=== PATIENT | female | born 1955 | race Caucasian/White ===

== ENCOUNTER 2019-10-18 08:48 | Outpatient (CLI) | payer MEDICARE, SELFPAY ==
--- NOTE | ~2019-10-18 | MMUS_ITS ---
EXAMINATION: MM diagnostic elise RT w ish, US breast RT complete HISTORY: Six-month follow-up of probable benign 4.1 x 2.3 x 3.1 cm complex cystic mass with internal septations at 10:00, likely benign postoperative seroma TECHNIQUE: ML, MLO and cc 3-D tomosynthesis images of the right breast were performed and synthetic 2 -D images were generated. CAD analysis was submitted and interpreted. High resolution complete right breast ultrasound was performed. COMPARISON: 03/01/2019 diagnostic bilateral digital mammogram and limited right breast ultrasound BREAST PARENCHYMAL COMPOSITION: The breasts are heterogeneously dense, which may obscure small masses . FINDINGS: MAMMOGRAPHIC FINDINGS: There is postoperative change posteriorly in the upper outer quadrant of the r ight breast. The previously reported mass density in the posterior aspect of the upper outer quadrant left breast is considerably diminished in size, currently measuring approximately 1.3 x 2.6 cm, consistent with i mpression of probable benign postoperative seroma. No suspicious mass or architectural distortion, malignant calcification, skin thickening or retractio n is noted otherwise. ULTRASOUND: At 10:00 the previously reported 4.1 x 2.3 x 3.1 cm multi septated cystic lesion currently is a compl ex mixed cisterns and solid lesion measuring 2.3 x 1.2 x 2.6 cm, consistent with resolving seroma. IMPRESSION: 1. Resolving posterior upper outer quadrant right breast postoperative seroma 2. Routine mammographic screening is recommended, in addition to any other clinically appropriate ashleigh ging in this patient with history of right breast cancer BI-RADS Category 2: Benign finding(s). Reviewed, dictated and finalized at location A. ENT SERVICE ASSOCIATE IMPRESSION: 1. Resolving posterior upper outer quadrant right breast postoperative seroma 2. Routine mammographic screening is recommended, in addition to any other clin ically appropriate imaging in this patient with history of right breast cancer BI-RADS Category 2: Benign finding(s).
== END 2019-10-18 08:49 | disposition home or self-care (01) ==
PROVIDERS: PCP Internal Medicine
DX: C50.411 Malignant neoplasm of upper-outer quadrant of right female breast (principal); Z17.0 Estrogen receptor positive status [ER+]; R92.8 Other abnormal and inconclusive findings on diagnostic imaging of breast; L76.34 Postprocedural seroma of skin and subcutaneous tissue following other procedure
CPT/HCPCS: 76641; 77061; 77065; G0279

== ENCOUNTER 2020-02-28 13:33 | Outpatient (CLI) | payer MEDICARE, SELFPAY ==
--- NOTE | ~2020-02-28 | MM_ITS ---
EXAMINATION: MM diagnostic elise BI w ish HISTORY: Status post right partial mastectomy for breast cancer in 2019 TECHNIQUE: ML, MLO and craniocaudal 3-D tomosynthesis images of both breasts were performed and synth etic 2-D images were generated. Bilateral rotated lateral cc views. CAD analysis was submitted and in terpreted. Comparison: 10/18/2019 diagnostic right digital mammogram and complete right breast ultrasound 03/01/2019 bilateral diagnostic digital mammogram and limited right breast ultrasound 10/07/2018 mammographic localization of right breast FINDINGS: There are scattered areas of fibroglandular density. Postoperative change is noted posteriorly in the upper outer quadrant right breast. No interval suspicious mass or new architectural distortion, malignant calcification, skin thickening or retraction is evident. IMPRESSION: 1. Status post right partial mastectomy for breast cancer 2. No interval evidence of malignancy BI-RADS Category 2: Benign finding(s). Reviewed, dictated and finalized at location A.
== END 2020-02-28 13:34 | disposition home or self-care (01) ==
PROVIDERS: PCP Internal Medicine; Referring Provider Radiology Radiation Oncology; Visit Provider Internal Medicine Medical Oncology
DX: C50.411 Malignant neoplasm of upper-outer quadrant of right female breast (principal); Z17.0 Estrogen receptor positive status [ER+]
CPT/HCPCS: 77062; 77066; G0279

== ENCOUNTER → 2020-08-28 09:07 | Outpatient (CLI) | payer MEDICARE, SELFPAY ==
--- NOTE | ~2020-08-28 | MMUS_ITS ---
EXAMINATION: MM diagnostic elise RT w ish, US breast RT limited HISTORY: Six-month follow-up; status post partial mastectomy for breast cancer, seroma TECHNIQUE: ML, MLO and cc full field and spot 3-D tomosynthesis images of the right breast were perfo rmed and synthetic 2-D images were generated. CAD analysis was submitted and interpreted. High resolu tion upper outer quadrant right breast ultrasound was performed. COMPARISON: 02/28/2020 bilateral diagnostic digital mammogram diagnostic right digital mammogram and complete right breast ultrasound examination BREAST PARENCHYMAL COMPOSITION: There are scattered areas of fibroglandular density. FINDINGS: MAMMOGRAPHIC FINDINGS: There is persistent architectural distortion in the posterior aspect of the upper outer quadrant of t he right breast overlying surgical scar. There is diminished size of a previously reported seroma. No suspicious mass, architectural distortion, malignant calcification, skin thickening or retraction or significant new or developing density is noted elsewhere in the right breast. ULTRASOUND: At 10:00 7.5 cm from the nipple at the area of surgical scar there is an underlying complex mass. The re is an approximately 5 x 12 mm seroma, but there is irregular soft tissue density with architectura l distortion and posterior shadowing at the margins, of concern for possible recurrent malignancy. Ul trasound-guided biopsy is recommended. IMPRESSION: 1. Irregular soft tissue thickening, distortion and posterior shadowing at the right upper outer quad rant postoperative site (10:00 location 7.5 cm from nipple), not evident on 10/18/2019 2. Recurrent upper outer quadrant right breast malignancy cannot be excluded 3. Ultrasound-guided biopsy is recommended BI-RADS category 4, suspicious findings. Dr. Driver telephoned the report and ultrasound guided biopsy recommendation to Dr. Yuliana Seaman on at 1219 hours. Reviewed, dictated and finalized at location A. NE ELECTRICIAN IMPRESSION: 1. Irregular soft tissue thickening, distortion and posterior shadowing at the right upper outer quadrant postoperative site (10:00 location 7.5 cm from nippl e), not evident on 10/18/2019 2. Recurrent upper outer quadrant right breast malignancy cannot be excluded 3. Ultrasound-guided biopsy is recommended BI-RADS category 4, suspicious findings. Dr. Driver telephoned the report and ultrasound guided biopsy recommendation to Deanne Seaman on 08/28/2020 at 1219 hours.
== END ==
PROVIDERS: PCP Internal Medicine; Visit Provider Internal Medicine Medical Oncology
DX: C50.411 Malignant neoplasm of upper-outer quadrant of right female breast (principal); Z17.0 Estrogen receptor positive status [ER+]; R92.8 Other abnormal and inconclusive findings on diagnostic imaging of breast
CPT/HCPCS: 76642; 77061; 77065; G0279

== ENCOUNTER 2020-09-06 10:08 | Outpatient (CLI) | payer MEDICARE, SELFPAY ==
--- NOTE | ~2020-09-06 | MMUS_ITS ---
MM post biopsy invasive RT, US breast biopsy RT w image EXAMINATION: US GUIDED NEEDLE BIOPSY WITH VAC UUM ASSISTANCE DATE: 09/06/2020 11:27 MOGUL OPERATOR INDICATION: Right breast mass seen on recent examination. History of right breast cancer. Ultrasound -guided core biopsy is requested to evaluate for malignancy. TECHNIQUE AND FINDINGS: The risks and potential benefits of the procedure were discussed with the patient, and written inform ed consent was obtained. After sterile preparation of the right breast, 1% lidocaine was utilized fo r local anesthesia. 1% lidocaine with epinephrine was used for deep anesthesia. A 10G vacuum-assisted biopsy gun needle was advanced through to the outer edge of the region of inter est from a superior lateral approach utilizing sonographic guidance. A total of 4 tissue core sample s were obtained through the lesion. An Inrad tissue marker clip was then placed at the biopsy site. Hemostasis was achieved. The patient tolerated procedure well and there was no evidence of immediate complication. The patien t was given verbal instructions partly is from the department. Right breast mammograms to document t issue marker clip placement, although the tissue marker is not definitely visualized. There are 2 mar kers seen in the upper aspect of the right axilla which may relate to prior surgery. The tissue sampl es were submitted to surgical pathology for histologic analysis. IMPRESSION: 1. Successful ultrasound-guided vacuum-assisted biopsy of right breast mass. Please refer to patholo gy report for histologic analysis. Reviewed, dictated and finalized at location A. L OPERATOR IMPRESSION: 1. Successful ultrasound-guided vacuum-assisted biopsy of right breast mass. P lease refer to pathology report for histologic analysis.
== END 2020-09-06 10:09 | disposition home or self-care (01) ==
PROVIDERS: PCP Internal Medicine; Visit Provider Surgery
DX: R92.8 Other abnormal and inconclusive findings on diagnostic imaging of breast (principal); Z85.3 Personal history of malignant neoplasm of breast
CPT/HCPCS: 19083; 88305; A4648

== ENCOUNTER 2021-02-19 12:34 | Outpatient (CLI) | payer MEDICARE, SELFPAY ==
--- NOTE | 2021-02-19 12:47 | ECG_ITS ---
Measurements Intervals [place] Rate: 52 P: 45 SC: 163 QRS: 15 QRSD: 102 T: 53 QT: 427 QTc: 400 Interpretive Statements SINUS BRADYCARDIA DELAYED PRECORDIAL R/S TRANSITION BORDERLINE ECG Electronically Signed On 02-19-2021 13:04:00 CDT by Kobi Gonzalez D.O.
== END 2021-02-19 12:35 | disposition home or self-care (01) ==
PROVIDERS: PCP Internal Medicine; Visit Provider Internal Medicine
DX: I10 Essential (primary) hypertension (principal); Z01.818 Encounter for other preprocedural examination; R94.31 Abnormal electrocardiogram [ECG] [EKG]
CPT/HCPCS: 93005

== ENCOUNTER 2021-03-02 12:43 | Outpatient (CLI) | payer MEDICARE, SELFPAY ==
--- NOTE | ~2021-03-02 | MMUS_ITS ---
EXAMINATION: MM diagnostic elise BI w ish, US breast LT complete HISTORY: Personal history right breast cancer TECHNIQUE: ML, MLO and craniocaudal 3-D tomosynthesis images of both breasts were performed and synth etic 2-D images were generated. Bilateral rotated lateral craniocaudal views. CAD analysis was submit hallie and interpreted. High resolution complete left breast ultrasound was performed. COMPARISON: 08/28/2020 right diagnostic mammogram and limited right breast ultrasound 02/28/2020 bilateral diagnostic mammography 08/17/2020 diagnostic right mammogram and complete right breast ultrasound 03/01/2019 bilateral diagnostic digital mammogram and limited right breast ultrasound BREAST PARENCHYMAL COMPOSITION: There are scattered areas of fibroglandular density. FINDINGS: MAMMOGRAPHIC FINDINGS: Postoperative surgical stable scarring is noted posteriorly in the upper outer right breast, not sign ificantly changed since 08/28/2020. 09/06/2020 biopsy no this area showed fibrotic change. 4 mm circumscribed mass is suggested posteriorly in the left breast on MLO Tomosynthesis image /. Otherwise no suspicious mass, architectural distortion, malignant calcification, skin thickening or r etraction or significant new or developing density of either breast is detected. ULTRASOUND: No suspicious mass or shadowing of the left breast is detected. IMPRESSION: 1. Stable benign postoperative scarring posteriorly in the upper outer quadrant of the right breast p ost right partial mastectomy for breast cancer 2. No mammographic evidence of malignancy 3. Routine mammographic screening is recommended BI-RADS Category 2: Benign finding(s). Reviewed, dictated and finalized at location A. IMPRESSION: 1. Stable benign postoperative scarring posteriorly in the upper outer quadrant of the right breast post right partial mastectomy for breast cancer 2. No mammographic evidence of malignancy 3. Routine mammographic screening is recommended BI-RADS Category 2: Benign finding(s).
== END 2021-03-02 12:44 | disposition home or self-care (01) ==
PROVIDERS: PCP Internal Medicine; Visit Provider Obstetrics & Gynecology Gynecology
DX: C50.911 Malignant neoplasm of unspecified site of right female breast (principal); Z85.3 Personal history of malignant neoplasm of breast
CPT/HCPCS: 76641; 77062; 77066; G0279

== ENCOUNTER 2021-10-19 10:45 | Outpatient (CLI) | payer MEDICARE, SELFPAY ==
--- NOTE | ~2021-10-19 | MM_ITS ---
EXAMINATION: MM diagnostic elise BI w ish HISTORY: History of right breast cancer TECHNIQUE: Craniocaudal, mediolateral, and mediolateral oblique 3-D tomosynthesis images of the breas ts were performed and synthetic 2-D images were generated. CAD analysis was submitted and interpreted . COMPARISON: 03/02/2021, 08/28/2020, 02/28/2020, 10/18/2019, 03/01/2019 FINDINGS: Stable lumpectomy changes are present in the posterior third of the upper outer quadrant of the right breast. No new suspicious mass, calcification, or architectural distortion are identified. There has been no suspicious interval change. IMPRESSION: 1. No mammographic evidence of malignancy. 2. Recommend routine screening mammography in one year. BI-RADS Category 2: Benign finding(s). Reviewed, dictated and finalized at location A. IFIED COATINGS INSPECTOR
== END 2021-10-19 10:46 | disposition home or self-care (01) ==
PROVIDERS: PCP Internal Medicine; Visit Provider Obstetrics & Gynecology Gynecology
DX: Z85.3 Personal history of malignant neoplasm of breast (principal)
CPT/HCPCS: 77062; 77066; G0279

== ENCOUNTER 2022-03-19 09:44 | Outpatient (CLI) | payer MEDICARE, SELFPAY ==
--- NOTE | 2022-03-19 09:57 | EST_ITS ---
Patient Info Name: Rosalba Smith Age: 66 years : 1955 Gender: Female Ht: 64 in Wt: 133 lbs BSA: 1.66 m2 HR: 47 bpm BP: 138 / 65 mmHg Heart Rhythm: Sinus Rhythm Technical Quality: Fair Exam Date: 03/19/2022 10:46 AM Exam Location: [facility] Patient Status: Outpatient Admit Date: 03/19/2022 Staff Ordering Physician: Kojo Issa DO Box Truck Driver: Emely Vee RDCS Attending Provider: Kojo Issa DO Referring Physician: Luis Manuel ALCALA; Exam Type: CA stress echo Study Info Indications - FM HX ISCHEMIC HEART DISEASE Treadmill exercise stress echocardiogram is performed. Summary 1. 1. Negative Farhan exercise stress test for ischemic ST changes by ECG criteria. 2. 2. Good functional capacity, achieving 10 METs of workload. 3. 3. Appropriate HR response to exercise. 4. 4. Appropriate HR recovery at 1 minute post exercise. 5. 5. Negative stress echocardiogram for ischemia by wall motion analysis. 6. 6. Patient informed of the above results. Stress Echo Findings Left Ventricle Appropriate increase in LV endocardial thickening with systole. Appropriate augmentation of contractility with systole. No wall motion abnormality. Left Ventricle Normal LV systolic function, no wall motion abnormality. Protocol: Farhan Stress ECG Details Stage: REST Duration (min): 1 min : 56 sec Speed (mph): 0.0 Grade (%): 0 HR (bpm): 48 SBP (mmHg): 138 DBP (mmHg): 65 METS: --- Stage: REST Duration (min): 12 min : 48 sec Speed (mph): 0.0 Grade (%): 0 HR (bpm): 59 SBP (mmHg): 138 DBP (mmHg): 65 METS: --- Stage: STAGE 1 Duration (min): 1 min : 0 sec Speed (mph): 1.7 Grade (%): 10 HR (bpm): 90 SBP (mmHg): 138 DBP (mmHg): 65 METS: --- Stage: STAGE 1 Duration (min): 2 min : 0 sec Speed (mph): 1.7 Grade (%): 10 HR (bpm): 98 SBP (mmHg): 138 DBP (mmHg): 65 METS: --- Stage: STAGE 1 Duration (min): 3 min : 0 sec Speed (mph): 1.7 Grade (%): 10 HR (bpm): 96 SBP (mmHg): 180 DBP (mmHg): 81 METS: --- Stage: STAGE 2 Duration (min): 1 min : 0 sec Speed (mph): 2.5 Grade (%): 12 HR (bpm): 107 SBP (mmHg): 180 DBP (mmHg): 81 METS: --- Stage: STAGE 2 Duration (min): 2 min : 0 sec Speed (mph): 2.5 Grade (%): 12 HR (bpm): 108 SBP (mmHg): 183 DBP (mmHg): 82 METS: --- Stage: STAGE 2 Duration (min): 3 min : 0 sec Speed (mph): 2.5 Grade (%): 12 HR (bpm): 113 SBP (mmHg): 183 DBP (mmHg): 82 METS: --- Stage: STAGE 3 Duration (min): 1 min : 0 sec Speed (mph): 3.4 Grade (%): 14 HR (bpm): 120 SBP (mmHg): 180 DBP (mmHg): 84 METS: --- Stage: STAGE 3 Duration (min): 2 min : 0 sec Speed (mph): 3.4 Grade (%): 14 HR (bpm): 123 SBP (mmHg): 180 DBP (mmHg): 84 METS: --- Stage: STAGE 3 Duration (min): 3 min : 0 sec Speed
== END 2022-03-19 09:45 | disposition home or self-care (01) ==
LOC: ANHCARD 09:45
PROVIDERS: PCP Internal Medicine; Visit Provider Internal Medicine
DX: R07.89 Other chest pain (principal); Z82.49 Family history of ischemic heart disease and other diseases of the circulatory system
CPT/HCPCS: 93351

== ENCOUNTER 2022-05-21 11:09 | Outpatient (CLI) | payer MEDICARE, SELFPAY ==
--- NOTE | ~2022-05-21 | MMUS_ITS ---
EXAMINATION: MM diagnostic elise BI w ish, US breast BI limited HISTORY: History of right breast cancer; status post right partial mastectomy for breast cancer, 2018 . No current patient complaint. TECHNIQUE: ML, MLO and CC full field and spot 3-D tomosynthesis images of both breasts were performed and synthetic 2-D images were generated. Bilateral rotated lateral CC views. CAD analysis was submit hallie and interpreted. High resolution bilateral upper outer quadrant breast ultrasound was performed. COMPARISON: 10/19/2021 bilateral diagnostic mammogram 03/02/2021 bilateral diagnostic mammography and complete left breast ultrasound 02/28/2020 bilateral diagnostic mammogram BREAST PARENCHYMAL COMPOSITION: There are scattered areas of fibroglandular density. FINDINGS: MAMMOGRAPHIC FINDINGS: Stable posterior upper outer quadrant architectural distortion consistent with postoperative scarring from right partial mastectomy for breast cancer, stable in appearance since , 02/28/2020. No interval suspicious mass, new architectural distortion, malignant calcification, skin thickening o r retraction of either breast or significant change since 02/28/2020 ULTRASOUND: No suspicious mass or shadowing is detected in the upper outer quadrant of either breast. IMPRESSION: 1. Status post right partial mastectomy for breast cancer. No mammographic evidence of malignancy 2. Routine annual mammographic screening is recommended BI-RADS Category 2: Benign finding(s). Reviewed, dictated and finalized at location A. IMPRESSION: 1. Status post right partial mastectomy for breast cancer. No mammographic evid ence of malignancy 2. Routine annual mammographic screening is recommended BI-RADS Category 2: Benign finding(s).
== END 2022-05-21 11:10 | disposition home or self-care (01) ==
PROVIDERS: PCP Internal Medicine; Visit Provider Obstetrics & Gynecology Gynecology
DX: R92.8 Other abnormal and inconclusive findings on diagnostic imaging of breast (principal)
CPT/HCPCS: 76642; 77062; 77066; G0279

== ENCOUNTER 2022-07-30 18:55 | Outpatient (CLI) | payer MEDICARE, SELFPAY ==
--- NOTE | ~2022-07-30 | XR_ITS ---
XR_[id number] 07/30/2022 19:14 Indication: Headache Procedure: 4 view cervical spine Comparison: No prior studies for comparison. Findings: There is degenerative anterolisthesis at C2-3, C3-4 and C4-5. There is severe degenerative disc disease and endplate hypertrophy at C5-6. There is disc narrowing at C6-7. No prevertebral soft tissue abnormality. Odontoid process is unremarkable. Lateral masses normally aligned. There is multi level facet and uncinate hypertrophy. Lung apices are unremarkable. Impression: 1: Severe cervical spondylosis. Reviewed, dictated and finalized at location B. ESE LANGUAGE PROFESSOR Impression: 1: Severe cervical spondylosis.
== END 2022-07-30 18:56 | disposition home or self-care (01) ==
LOC: ANHIMG 18:58
PROVIDERS: PCP Internal Medicine; Visit Provider Internal Medicine
DX: R51.9 Headache, unspecified (principal); M47.892 Other spondylosis, cervical region
CPT/HCPCS: 72040

== ENCOUNTER → 2023-05-23 09:58 | Outpatient (CLI) | payer MEDICARE, SELFPAY ==
--- NOTE | ~2023-05-23 | DEXA_ITS ---
Bone Density Report Name: JEREMÍAS COOLEY Age: 67 Sex: Female Ethnicity: White Date of : 1955 Indication: postmenopausal; screening for osteoporosis; Referring Provider: JOSELINE GILLESPIE Study: Bone densitometry was performed. Exam Date: May 23, 2023 Accession number: [id number] Bone Density: Region BMD T-score Z-score Classification AP Spine (L1-L4) 1.068 0.2 2.3 Normal Femoral Neck (Left) 0.880 0.3 2.1 Normal Total Hip (Left) 1.030 0.7 2.2 Normal Femoral Neck (Right) 0.911 0.6 2.3 Normal Total Hip (Right) 1.050 0.9 2.4 Normal Total Hip Mean 1.040 0.8 2.3 Normal World Health Organization criteria for BMD impression classify patients as: Normal (T-score at or above -1.0), Osteopenia (T-score between -1.0 and -2.5), or Osteoporosis (T-score at or below -2.5). 10-year Fracture Risk: FRAX not reported because: All T-scores for Spine Total, Hip Total, Femoral Neck at or above -1.0 Clinical Information Provided by Patient: Patient maximum height was 64 Menopause Age: 48 Drinks caffeinated beverages Onset of menses at age 10 Number of children 2 Impression: The patient has normal bone mass. Discussion: LOW RISK OF FRACTURE; BONE DENSITY IS WELL ABOVE THE MINIMUM DESIRABLE LEVEL AND ABOVE AVERAGE FOR AGE AND SEX AT ALL SKELETAL SITES TESTED. This person's bone density is above expected limits for age and sex. This is rarely clinically significant, but should be pursued if there are significant musculoskeletal complaints. The patient should follow a healthful lifestyle (good nutrition with adequate calcium and vitamin D, and appropriate weight-bearing exercise). Follow-Up: Consider repeating this study in 5 years or sooner if there is some new clinical indication. Reported by: SOFIA on 05/23/2023 10:53:00 AM. Reviewed, dictated and finalized at location A. ROSS
--- NOTE | ~2023-05-23 | MM_ITS ---
EXAMINATION: MM screening [facility] BI w ish HISTORY: Screening mammogram TECHNIQUE: Craniocaudal and mediolateral oblique 3-D tomosynthesis images were obtained and synthetic 2-D images were generated. Right rotated lateral CC view. CAD analysis was submitted and interpreted . COMPARISON: 05/21/2022 bilateral diagnostic mammography and bilateral Limited breast ultrasound diagnostic bilateral mammogram 03/02/2021 bilateral diagnostic mammography and complete left breast ultrasound BREAST PARENCHYMAL COMPOSITION: The breasts are heterogeneously dense, which may obscure small masses . FINDINGS: Stable asymmetry and architectural distortion in the posterior upper outer right breast; biopsy reportedly showed fibrotic change. A new 4 mm mildly irregular mass is suggested in the posterior outer mid left breast on MLO Tomosynth esis (image 26/85). Diagnostic left mammogram and left breast ultrasound examination are recommended. Otherwise there is no evidence of suspicious mass, calcification, or interval architectural distortio n to suggest malignancy in either breast. There has been no other suspicious interval change. IMPRESSION: 1. Possible new 4 mm breast mass in posterior outer mid left breast 2. Diagnostic left mammogram and left breast ultrasound examination are recommended. BI-RADS Category 0: Incomplete: Needs additional imaging evaluation. Reviewed, dictated and finalized at location A. IMPRESSION: 1. Possible new 4 mm breast mass in posterior outer mid left breast 2. Diagnostic left mammogram and left breast ultrasound examination are recomme nded. BI-RADS Category 0: Incomplete: Needs additional imaging evaluation.
== END ==
PROVIDERS: PCP Internal Medicine; Visit Provider Obstetrics & Gynecology Gynecology
DX: Z12.31 Encounter for screening mammogram for malignant neoplasm of breast (principal); Z78.0 Asymptomatic menopausal state; R92.8 Other abnormal and inconclusive findings on diagnostic imaging of breast
CPT/HCPCS: 77063; 77067; 77080

== ENCOUNTER → 2023-06-23 13:37 | Outpatient (CLI) | payer MEDICARE, SELFPAY ==
--- NOTE | ~2023-06-23 | MMUS_ITS ---
EXAMINATION: MM diagnostic elise LT w ish, US breast LT limited HISTORY: Follow-up left breast mass TECHNIQUE: Additional 3-D tomosynthesis images of the left breast were performed and synthetic 2-D im ages were generated. CAD analysis was submitted and interpreted. High resolution Limited left breast ultrasound was performed. COMPARISON: Comparison to multiple prior studies sequentially, with oldest reviewed study dated 03/02. BREAST PARENCHYMAL COMPOSITION: The breasts are heterogeneously dense, which may obscure small masses FINDINGS: MAMMOGRAPHIC FINDINGS: Left breast is stable. No significant change to mass in the mid aspect of the left breast on MLO and medial lateral view compared with 05/21/2022 and 10/19/2021. No new masses, calcifications or net technical architect ural distortion to suggest malignancy. ULTRASOUND: Limited left breast ultrasound: At 1:00, 4 cm from the nipple, there is an oval hypoechoic mass measu ring 4 mm without significant posterior features or internal vascularity, likely benign. IMPRESSION: 1. Probable benign findings of the left breast. 2. Recommend 6 month follow-up diagnostic left mammogram and ultrasound. BI-RADS category 3, probably benign findings. Reviewed, dictated and finalized at location A. IMPRESSION: 1. Probable benign findings of the left breast. 2. Recommend 6 month follow-up diagnostic left mammogram and ultrasound. BI-RADS category 3, probably benign findings.
== END ==
PROVIDERS: PCP Surgery; Visit Provider Obstetrics & Gynecology Gynecology
DX: R92.8 Other abnormal and inconclusive findings on diagnostic imaging of breast (principal)
CPT/HCPCS: 76642; 77061; 77065; G0279

== ENCOUNTER 2023-12-22 13:33 | Outpatient (CLI) | payer MEDICARE, SELFPAY ==
--- NOTE | ~2023-12-22 | MMUS_ITS ---
EXAMINATION: MM diagnostic elise LT w ish, US breast LT complete HISTORY: Follow-up left breast mass TECHNIQUE: Additional 3-D tomosynthesis images of the left breast were performed and synthetic 2-D im ages were generated. CAD analysis was submitted and interpreted. High resolution Limited left breast ultrasound was performed. COMPARISON: Comparison to multiple prior studies sequentially, with oldest reviewed study dated 03/02. BREAST PARENCHYMAL COMPOSITION: Dense: The breasts are heterogeneously dense, which may obscure small masses FINDINGS: MAMMOGRAPHIC FINDINGS: The left breast is stable. No new masses, calcifications or architectural distortion. ULTRASOUND: Limited left breast ultrasound: At 1:00, 4 cm from the nipple, there is an oval 4 mm cyst without sig nificant change from prior study allowing for differences of technique. No suspicious masses to sugge st malignancy. IMPRESSION: 1. Stable benign findings of the left breast. No evidence for malignancy. 2. Routine yearly screening mammogram and regular clinical breast examination are recommended. BI-RADS Category 2: Benign finding(s). Reviewed, dictated and finalized at location B. IMPRESSION: 1. Stable benign findings of the left breast. No evidence for malignancy. 2. Routine yearly screening mammogram and regular clinical breast examination a re recommended. BI-RADS Category 2: Benign finding(s).
== END 2023-12-22 13:34 ==
LOC: MICIMG 13:35
PROVIDERS: PCP Surgery; Visit Provider Obstetrics & Gynecology Gynecology
DX: N63.20 Unspecified lump in the left breast, unspecified quadrant (principal); R92.8 Other abnormal and inconclusive findings on diagnostic imaging of breast
CPT/HCPCS: 76641; 77061; 77065; G0279

== ENCOUNTER 2025-03-09 09:47 | Outpatient (CLI) | payer MEDICARE, SELFPAY ==
--- NOTE | ~2025-03-09 | XR_ITS ---
Clinical Indication: Cough PA and lateral views of the chest: Comparison: None Findings: The lungs are clear, without evidence of focal consolidation or pleural effusion. Cardiome diastinal silhouette is within normal limits. Bones and soft tissues are unremarkable. Impression: Normal chest. Reviewed, dictated and finalized at location . Impression: Normal chest.
--- OUTSIDE RECORDS SUMMARY | 2025-03-09 09:58 | XMS_ITS ---
[facility] Organization [facility] Address [address] [place] [address] Care Team Providers Care Vmware Administrator Name Role Phone Kojo Issa DO Primary Care Provider [phone] Active Problems Problem Noted Date Diagnosed Date Seroma of breast 11/18/2018 Cellulitis of female breast 11/18/2018 Malignant neoplasm of upper- outer quadrant of right breast in female, estrogen receptor positive 11/02/2018 Current Treatment and Therapy Plans No current plan information found. Past Treatment and Therapy Plans No past plan information found. Treatment Summaries Malignant neoplasm of upper-outer quadrant of right breast in female, estrogen receptor positive (CMS/HCC)* Breast Cancer Survivorship Care Plan Provided by [facility] on 12/30/18 General Information Patient Name: Rosalba Smith Patient : 1955 Care Team Medical Oncologist: Yuliana Seaman Surgeon: Dr Amado Plastic Surgeon: DESTINEE Radiation Oncologist: Bettie Cardenas Primary Care Physician: Kojo Issa DO, book author Physician: Dr Rosario Palliative Care Provider: DESTINEE Nurse Navigator: DESTINEE Advanced Practitioner: DESTINEE Other Care Team Providers: Cancer Staging No matching staging information was found for the patient. [No treatment plan] Treatment Summary Chemotherapy No chemotherapy NA Radiation Type: External Beam Radiation Site: Right Dates: 11-04 to 11-25-2018 Surgery Lumpectomy - Right Date: 10-07-2018 Endocrine Date: Clinical Trial NA Familial Cancer Risk Assessment Genetic Counseling no Dates: Genetic/Hereditary Risk Factors or Predisposing Conditions: Genetic Testing Results: Date: Persistent symptoms or side effects at completion of treatment: no Types: Potential late effects of treatment(s): Radiation Treatment: Late side effects generally occur 6 or more months after the completion of radiation therapy. The extent and severity of these side effects vary depending on patient factors and radiation treatment design. The majority of radiation side effects occur within the radiation treatment field. Skin changes Risk of nerve damage Risk of lymphedema Risk of lung tissue changes Risk of cardiac damage (if left sided breast cancer) Risk of secondary cancers Cancer Survivors may experience issues with the area listed below. If you have any concerns in these or other areas, please speak with your doctors or nurses to find out how you can get help with them. Potential Areas of Concern Potential Areas of Concern Sexual Functioning Resources Provided to Patient Referrals Provided: None wanted Follow-up and Survivorship Care Follow Up Care Recommendation Coordinating Provider Ongoing Therapy Therapy: Aromatase Inhibitors (Anastrozole, Letrozole, Exemestane). Possible Side Effects: Hot Flashes Planned Duration: 5-10 years Medical Oncologist Medical Oncology history and physical (H&P) examination Visit your doctor every 3 to 6months for the first 3 years after the first treatment, every 6 to 12 months for years 4 and 5, and every year thereafter. Medical Oncologist Surgeon Non-Invasive: Every 6-12 months for 5 years; every year thereafter. Mammogram every 12 months (first mammogram 6-12 months after breast conservation therapy). Invasive: 1-4 times per year as clinically indicated for 5 years; every year thereafter. Surgeon Radiation Oncology 4-6 weeks after treatment, then every 3-6 months for the first 3 years and then every 6-12 months for year 4 and 5. Radiation Oncologist Post-treatment mammography Schedule a mammogram 1 year after your first mammogram that led to diagnosis, but no earlier than 6 months after radiation therapy. Obtain a mammogram every 6 to 12 months thereafter. Medical Oncologist Breast self-examination Perform a breast self-examination every month. This procedure is not a substitute for a mammogram. Medical Oncologist Pelvic examination Continue to visit a acid bleacher regularly. If you use tamoxifen, you have a greater risk for developing endometrial cancer (cancer of the lining of the uterus). Women taking tamoxifen should report any vaginal bleeding to their doctor. Medical Oncologist Bone Density Baseline prior to Anastrozole, Letrozole, and Exemestane on all postmenopausal women and repeated every 1 to 2 years as directed by physician. Medical Oncologist/Primary Care Provider Genetic counseling referral Tell your doctor if there is a history of cancer in your family. The following risk factors may indicate that breast cancer could run in the family: Ashkenazi Mandaeism heritage Personal or family history of ovarian cancer Any first-degree relative (mother, sister, daughter) diagnosed with breast cancer before age 50 Two or more first-degree or second-degree relatives (grandparent, aunt, uncle) diagnosed with breast cancer Personal or family history of breast cancer in both breasts History of breast cancer in a male relative Medical Oncologist Non cancer related preventive care Continue your routine visits to your primary care physician for preventative care. Bone health DEXA every 2 years Calcium with vitamin D Weight bearing exercise Prostate Cancer Screening PSA Levels as discussed with your PCP Lung Cancer Screening 55-77 years of age 30 pack per year or more smoking history Current Smoker or smoked within the last 15 years No signs and symptoms of lung cancer Smoked one pack of cigarettes per day for 30 years or two packs a day for 15 years In generally good health Colon Cancer Screening Screening colonoscopy starting at age 45 or as discussed with PCP Stool guaiac tests Eat fruits and vegetables Heart Health Weight management Cholesterol management Blood sugar control Blood pressure control Cervical Cancer Screening Pap test as discussed with PCP Breast Cancer Screening Mammograms as discussed with your PCP Call your doctor if you have any of these signs and symptoms: NA *Any new, unusual and/or persistent symptoms should be brought to the attention of your provider. Additional Resources: Patients may have many varied questions and concerns after their cancer treatment ends. A list of local resources is provided below to assist you. [facility] Oncology Rehabilitation & Survivorship Dee Thomas and Johan [address] [place] [address] [facility] Integrative Medicine and Therapy Services - Marko Galeas [facility] [address] [place] [address] [facility] Therapy Services - [place] [address] [place] [address] [facility] Therapy Services - [facility] [address] [place] [address] [facility] Therapy Services - [place] [address] [place] [address] [facility] Integrative Medicine & Healing Therapies [facility] Integrative Medicine and Therapy Services Manjit [address] [address], [address] [place]. [address] Services: Acupuncture, Auriculotherapy, Chiropractic, Guided Imagery, Healing Touch, Massage Therapy, Nutritional Counseling, Physical Therapy (manual and traditional) and Reflexology [facility] [address] [address] [facility] [address] [place]. [address] Services: Acupuncture, Auriculotherapy, Chiropractic, and Massage Therapy [facility] Integrative Medicine and Therapy Services Cancer Brea [address], [address] [place] [address] Services: Acupuncture, Auriculotherapy, Guided Imagery, Healing Touch, Massage Therapy, Lymphedema,Physical Therapy and Reflexology [facility] [address] [address] [place]. [address] Services: Acupuncture and Chiropractic Lymphedema Programs & Support Groups Marko Galeas [facility] [address] [place] [address] [facility] [address] [place] [address] [place] Cancer Society www.cancer.org Help line 24 hours, 7 days/week, phone [phone] [place] [address] Hours Friday - Friday 8:30 am- 5 pm Services include: information and referrals, educational materials transportation assistance nutritional supplements wigs educational and support programs Breastcancer.org www.breastcancer.org Online resource for breast cancer information. Cancer Care www.cancercare.org [address] [place] [address] [phone] Cancer Care provides some financial assistance for transportation and other needs. Cancer patients must call to see if they qualify and to have an application mailed to them. They need a healthcare professional to assist with completion of the application. Cancer Support Community [facility] www.cancersupportstl.org [address] [place] [address] Helps people with cancer and their loved ones enhance health and well being by providing a professional program of emotional support, education and hope. Programs and services are held in a homelike setting where people with cancer can come to be with others, to build support and a sense of extended family to share, learn, and improve their quality oflife. Cancer Support Community?s [facility] www.cancersupportstl.org [address] [place] [address] Phone Upon the written referral of a healthcare provider involved in the patient?s care, The Wellness Community places an order for the requested items which are then sent directly to the cancer patient. The Cancer Services program covers the cost up to $500 per patient per year for items such as: wigs and prostheses, bed pads, diapers and dietary supplements to cancer patients in financial need when items are not covered by insurance. Cancer patients must live in the counties of: [facility], [facility], [facility], [place]; [facility] and [place];or come to the [facility] for their cancer treatment. Chronic Disease Fund www.cdfund.org Assists patients who cannot access the treatments they need due to csj-im-gdkfzg healthcare costs including deductibles, copayments, and coinsurance. Call to find out if there are funds for a specific diagnosis. Food Outreach www.foodoutreach.org [address] [place] [phone] ([phone]) Food Outreach provides nutritional services to men, women and children undergoing cancer treatment in the [facility]. A dietitian accesses each person?s nutritional status and needs. The dietitian and pantry chef work together to develop eating plans to meet the specialized nutritional needs of people living with cancer. Clients who meet financial guidelines can make selections once every 2 weeks from a menu. [place] to Hope www.wyandot memorial hospitaltl.org.org [phone] [place] [facility] [place] was created to help underinsured and uninsured women at high- risk for (or diagnosedwith) breast cancer. Their goal is to lift the financial burdens, ease the unknowing, and help you focus on feeling well again. Friend Trusted www.Immigreat Nowation.org [facility] addresses the needs of individuals who cannot afford their insurance co-payments, premiums, coinsurance, or other tug-jw-pwezwk health care costs. Call to see if they offer assistance for a specific diagnosis. Living Beyond Breast Cancer www.lbbc.org [phone] ([phone]) Survivor?s helpline Website and free helpline for women with breast cancer. [employer] www.MyActivityPal.Mobilitus A resource for medication assistance programs for people who have no insurance coverage or limited coverage for medications. Patient Access Network Foundation www.patientaccessnetwork.org Assists patients who cannot access the treatments they need due to ake-tm-aiyfyl healthcare costs including deductibles, copayments, and coinsurance. Call to find out if there are funds for a specific diagnosis. Patient Advocate Foundation?s Co-Pay Relief Program www.Applicasa.org Provides direct co-payment assistance for pharmaceutical products to insured patients (including Medicare Part D beneficiaries), who financially and medically qualify. Call to find out if they provide assistance for a specific diagnosis. [facility] Adal [facility] www.[facility] [address] [place] [address] Phone , or [phone] Provides education, information, and support to patients and family members Open M-F, 8:00 am- 4:30 pm, staff include registered nurses, social welfare administrator, dietitian [place] [employer] www.Refulgent Softwareoc.org [address] [place] [phone] Hours are M-F, 8:30 am- 4:30 pm The [employer] serves cancer patients in [facility]. Assistance is provided for the following when not covered by insurance: dietary supplements, prostheses, medications, surgical dressings, respite care, colostomy supplies,catheters, transportation, postoperative appliances ADDITIONAL WEBSITES Association of Community Cancer Centers www.acc-cancer.org National Cancer [place] http://cancer.gov The National Coalition for Cancer Survivorship www.canceradvocacy.org National Resources-Cancer Cancer Education Academy of Oncology Nurse & Patient Navigators: www.aonnonline.org Wesley's Lemonade Stand Foundation for Childhood Cancer: www.alexslemonade.org [place] Cancer Society: www.cancer.org [place] Society of Clinical Oncology: www.cancer.net Association of Community Cancer Centers: www.[facility]-cancer.org OMOCHR960: www..org CancerCare: www.cancercare.org CancerGuide: www.cancerguide.org CancerQuest: www.cancerquest.org Centers for Disease Control and Prevention (CDC): www.cdc.gov The Gathering Place: www.touchedbycancer.org Get Palliative Care: www.getpalliativecare.org Global Resource for Advancing Cancer Education (MARLYN): www.cancergrace.org The Episencial: www.Tomo Clases.Pierce Global Threat Intelligence Foundation: www.Amorcyte.Xplr Software National Cancer [place]: www.cancer.gov National Comprehensive Cancer Network (NCCN): www.nccn.org National BT Cancer Network: http://cancer-network.org OncoLink: www.oncolink.org Oncology Nursing Society: www.ons.org Patient Power: www.patientpower.info PearlPoint Cancer Support: www.pearlpoint.org [place] Prognosis Health Information Systems Foundation: www.pinestreetfoundation.org [facility] Cancer Foundation: www.blochcancer.org [facility]: www.[facility].org Triage Cancer: www.triagecancer.org U.S. National Library of Medicine: www.nlm.nih.gov Financial Assistance [place] Cancer Society: www.cancer.org Salv[place] Kidney Fund: www.kidneyfund.org BenefitsCheckUp: www.benefitscheckup.org Bringing Hope Home: www.bringinggalion community hospitalome.org CancerCare: www.cancercare.org/financial Cancer Financial Assistance Coalition: www.cancerfac.org The Clouli Fund: www.Sparling Studio.[employer] Foundation: www.Immigreat Nowation.org Hope Finley: www.cancer.org/treatment/supportprogramsservices/hopelodge LIVESTRONG Foundation: www.Amorcyte.Xplr Software Medicare.gov: www.medicare.gov NeedyMeds: www.needymeds.Mobilitus Partnership for Prescription Assistance: www.pparx.org Patient Access Network Foundation: www.panfoundation.org Patient Advocate Foundation: www.patientadvocate.org Patient Services, Inc.: www.patientservicesinc.org The Negin Monk Foundation: www.biapauly.org RxAssist: www.rxassist.org RxHope: www.rxhope.Mobilitus Social Security Administration: www.ssa.gov Social Security Disability Resource Center: www.the rehabilitation institute.Mobilitus [facility] Insurance Assistance Programs: www.Qt SoftwaretaAlaier.Xplr Software Stupid Cancer: www.stupidcancer.org [place] Cancer Society Guidelines on Nutrition and Physical Activity For Cancer Prevention 1. Achieve and maintain a healthy weight. Avoid weight gain during cancer treatment, whether you are at a healthy weight or overweight. Weight loss after recovery from treatment may benefit survivors who are overweight or obese. 2. Be physically active. Studies show that exercise is safe during cancer treatment, and can improve many aspects of health,including muscle strength, balance, fatigue, and depression. Physical activity after diagnosis is linked to living longer and a reduced risk of the cancer returning among people living with cancer, including breast, colorectal, prostate, and ovarian cancer. Aim for 30 min of exercise 5 days a week. 3. Eat a healthy diet, with an emphasis on fruits, vegetables, and whole grains. The most health benefits are associated with a diet high in fruits, vegetables, whole grains, poultry, and fish, and low in refined grains, red meat and processed meat (such as hot dogs), desserts, high-fat dairy products and Malay fries. Most of the studies about cancer and diet have focused on breast cancer. Studies show that taking vitamins, herbs and other nutritional supplements often does not help cancer patients live longer, and may even shorten life. Before taking any supplement, discuss it with your health care provider. 4. Don't smoke 5. If you drink alcohol, limit your intake. Drink no more than 1 drink per day for women or 2 per day for men. 6. Sunscreen use Exposure to ultraviolet rays is the leading cause of skin cancer. It is important to protect your skin. Sun damage builds up over time. It is important to use sunscreen every day. You should use a sunscreen that is water resistant and has an SPF of 30 or above. Remember to also protect your lips and eyes. 7. Routine blood pressure, cholesterol, and glucose monitoring. While many cancer survivors worry about their cancer coming back most cancer survivors are more likely to develop other chronic medical conditions such as high blood pressure, heart disease, and diabetes. Be sure to start and/or continue to see your primary care physician regularly. 8. Vaccines The flu is a respiratory infection caused by viruses. While most people with the flu get better on their own it can be serious. It can cause many medical complications and sometimes even . Be sure to get an annual influenza vaccine (flu shot). Pneumococcal diseases can cause serious infections in the lungs and bloodstream. A pneumococcal vaccine is recommended for all adults 65 years of age and older. It is also recommended for some younger adults who have chronic health conditions. Be sure and check with your doctor if you need a pneumococcal vaccine. 9. Routine Dental Care Your oral health may be more important than you think. It can contribute to various medical diseases and conditions. Daily oral hygiene helps decrease our risk of tooth decay and gum disease. Be sureto brush twice a day, floss daily, and see your dentist regularly for checkups and cleanings. 10. Eye Health Our eyes are called the windows to the world. Make sure you take good care of your eyes. Adults should have their eyes examined every 2 years until age 60. We should then undergo eye exams yearly. Individuals with contact lenses, glasses, or who are at high risk for eye problems (i.e. diabetes, family history of eye disease) should be seen more frequently. Breast Cancer Follow Up Sheet Estimated Target Dates Dates Completed DOS plus Actual Dates Mammogram1 (Date/Value) Follow Up Visit2 + 0 yrs / 3 mo + 0 yrs / 6 mo + 0 yrs / 9 mo + 1 yrs / 0 mo + 1 yrs / 3 mo + 1 yrs / 6 mo + 1 yrs / 9 mo + 2 yrs / 0 mo + 2 yrs / 3 mo + 2 yrs / 6 mo + 2 yrs / 9 mo + 3 yrs / 0 mo + 3 yrs / 6 mo + 4 yrs / 0 mo + 4 yrs / 6 mo + 5 yrs / 0 mo Comments / Evidence of Recurrence: Important caution: this is a summary document whose purpose is to review the highlights of the cancer treatment for this patient. This does not replace information available in the medical record, a complete medical history provided by the patient, examination and diagnostic information, or educational materials that describe strategies for coping with cancer and cancer therapies in detail. Both medical science and an individual?s health care needs change, and therefore this document is currentonly as of the date of preparation. This summary document does not prescribe or recommend any particular medical treatment or care for cancer or any other disease and does not substitute for the independent medical judgment of the treating professional.
--- OUTSIDE RECORDS SUMMARY | 2025-03-09 09:58 | XMS_ITS | Clinical Summary ---
Author Organization [facility] Health Address [address] [place] [address] Care Team Providers Care Public Health Nurse Name Role Phone Kojo Issa DO Primary Care Provider [phone] Source Comments [facility],non-owned Affiliates and Associated Physician Practices is amultiple site organization consisting of ambulatory clinics and hospital sitesin [place], [place], [place] and [place]. This disclosure is being madepursuant to the Care Everywhere program and may not contain all information available regarding this patient. Last updated 18.[facility] Allergies No known active allergies Social History Tobacco Use Types Packs/Day Years Used Date Smoking Tobacco: Never Assessed Comments Unknown Sex and Gender Information Value Date Recorded Sex Assigned at Not on file Legal Sex Female 12:35 PM MANAGER DOCUMENTATION Gender Identity Not on file Sexual Orientation Not on file Plan of Treatment Health Maintenance Due Date Last Done Comments BONE DENSITY TESTING 1955 COLON MONITORING 1955 COLONOSCOPY - COLON CA SCREENING 1955 CT COLONOGRAPHY - COLON CA SCREENING 1955 FIT - COLON CA SCREENING 1955 FLEX SIG - COLON CA SCREENING 1955 LIPID TESTING 1955 MEDICARE AWV 12 MONTHS 1955 HEPATITIS C SCREENING 08/07/1971 DTAP/TDAP/TD VACCINES (1 - Tdap) 1972 PNEUMOCOCCAL VACCINE 50+ (1 of 1 - PCV) 2003 ZOSTER VACCINE (1 of 2) 2003 MAMMOGRAM 08/28/2022 08/28/2020, 08/27/2018 COVID-19 VACCINE ( - 2023-2 5 season) 2024 DEPRESSION SCREENING 09/08/2024 INFLUENZA VACCINE (Season Ended) 2025 06/24/2019 COLOGUARD (AGES 45-75) - COL ON CA SCREENING 08/05/2025 08/05/2022 Colorectal Cancer Screening 08/05/2025 Respiratory Syncytial Virus (RSV) Vaccine Pt: or over 60 yrs (1 - 1-dose 75+ series) 2028 HEPATITIS B VACCINE Aged Out No longe r eligible based on patient's age to complete this topic HIB VACCINE Aged Out No longer eligi ble based on patient's age to complete this topic HPV VACCINE Aged Out No longer eligi ble based on patient's age to complete this topic MENINGOCOCCAL (Group B) VACCINE SHARED DECISION-MAKING Aged Out No longer eligible based on patient's age to complete this topic MENINGOCOCCAL GROUPS A/C/Y/W VACCINE Aged Out No longer eligible b ased on patient's age to complete this topic Insurance [facility] MEDICARE Care Teams Public Health Nurse Relationship Specialty Start Date End Date Kojo Issa DO [address] [place] [address] PCP - General Internal Medicine 08/28/18
--- OUTSIDE RECORDS SUMMARY | 2025-03-09 09:58 | XMS_ITS | Encounter Summary ---
Author Organization [facility] Address [address] [place] [address] Care Team Providers Care Crop Adjuster Name Role Phone Kojo Issa DO Primary Care Provider [phone] Encounter Details Date Type Department Care Team (Late st Contact Info) Description 10/21/2018 Chart Note [facility] Radiation Therapy [address] [place] [id number] [place] [address] [place] [address] Social History Tobacco Use Types Packs/Day Years Used Date Smoking Tobacco: Never Assessed Comments Unknown Sex and Gender Information Value Date Recorded Sex Assigned at Not on file Legal Sex Female 3:55 PM HOOKER UP Gender Identity Not on file Sexual Orientation Not on file documented as of this encounter Plan of Treatment Not on file documented as of this encounter Visit Diagnoses Not on filedocumented in this encounter Care Teams Crop Adjuster Relationship Specialty Start Date End Date Kojo Issa DO [address] [facility] [address] [place] [address] PCP - General Internal Medicine 10/27/18 documented as of this encounter
--- OUTSIDE RECORDS SUMMARY | 2025-03-09 09:58 | XMS_ITS | Referral Summary ---
Author Organization [address] Address [address] [place] [address] Care Team Providers Care Applier Name Role Phone Jim Wilson MD Unavailable [phone] Jose Enrique Iverson DO Primary Care Provider [phone] Allergies No known active allergies Medications levothyroxine (SYNTHROID) 50 mcg tablet Take 1 tablet (50 mcg total) by mouth termite control servicer before breakfast 0 Active lisinopriL (PRINIVIL,ZESTR IL) 5 mg tablet Take 1 tablet (5 mg total) by mouth nightly Active metFORMIN (GLUCOPHAGE) 500 mg tablet Take 1 tablet (500 mg total) by mouth nightly 4 Active multivitamin tabletIndicatio ns:Vitamin Deficiency Prevention Take 1 tablet by mouth every morning Active meloxicam (MOBIC) 15 mg tablet Take 1 tablet (15 mg total) by mouth daily as needed for pain Active famotidine (PEPCID) 20 mg tablet Take 1 tablet (20 mg total) by mouth 2 (two) times a day as needed for heartburn Active ALPRAZolam (XANAX) 0.25 mg tablet Take 1 tablet (0.25 mg total) by mouth nightly as needed for anxiety Active aspirin 81 mg enteric coated tabletIndicatio ns:Deep Vein Thrombosis Prevention Take 1 tablet (81 mg total) by mouth 2 (two) times a day 60 tablet 4 Active Additional Information Patient taking differently:81 mg oralDaily, Indications: Deep Vein Thrombosis Prevention, Reported on 09/24/2024 celecoxib (CeleBREX) 100 mg capsule Take 1 capsule (100 mg total) by mouth 2 (two) times a day 60 capsule 2 Active Active Problems Problem Noted Date Diagnosed Date Primary osteoarthritis of right knee 05/11/2024 Malignant neoplasm of upper- outer quadrant of right breast in female, estrogen receptor positive 11/02/2018 Social History Tobacco Use Types Packs/Day Years Used Date Smoking Tobacco: Never Smokeless Tobacco: Never Tobacco Cessation:Counseling Given: Not Answered AUDIT-C Answer Date Recorded Q1: How often do you have a drink containing alc ohol? 2-3 times a week 06/07/2024 Q2: How many drinks containi ng alcohol do you have on a typical day when you are drinking? 1 or 2 06/07/2024 Q3: How often do you have si x or more drinks on one occasion? Never 06/07/2024 Personal Safety Answer Date Recorded Have you ever been in or are you currently in a harmful physical or emotional relationship or is someone making you feel afraid or unsafe? Denies 07/01/2024 Comments Unknown Sex and Gender Information Value Date Recorded Sex Assigned at Not on file Legal Sex Female 2:19 AM GENERAL OFFICE ASSISTANT Gender Identity Not on file Sexual Orientation Not on file Last Filed Vital Signs Vital Sign Reading Time Taken Comments Blood Pressure 112/63 07/02/2024 9:25 AM CDT Pulse 52 07/02/2024 6:15 AM CDT Temperature 36.2 C (97.2 F) 07/02/2024 6:15 AM CDT Respiratory Rate 16 07/02/2024 6:15 AM CDT Oxygen Saturation 96% 07/02/2024 6:15 AM CDT Inhaled Oxygen Concentration - - Weight 61.7 kg (136 lb) 09/24/2024 9:31 AM GENERAL OFFICE ASSISTANT s tated Height 162.6 cm (5' 4) 09/24/2024 9:31 AM GENERAL OFFICE ASSISTANT Body Mass Index 23.34 09/24/2024 9:31 AM GENERAL OFFICE ASSISTANT Plan of Treatment Not on file Medical Devices Implanted Type Area Counselor Education Professor Device Identifier Shelf Expiration Date Model / Serial / Lot [employer] Palacos R High Viscosity Cement 40gm Bone Green [id number] - [id number] Implanted:Qty: 1 on 07/01/2024 by Jim Wilson MD at [facility] Right: Knee [employer] [id number] 08/07/2028 [id number] / / [id number] [employer] Baseplate Tibial Knee Cemented Right Fixed Stemmed Persona Size D Tivanium [id number] - [id number] Implanted:Qty: 1 on 07/01/2024 by Jim Wilson MD at [facility] Right: Knee [employer] [id number] 12/25/2033 [id number] / / [id number] [employer] Persona Cruciate Retain Cemented Knee Right 6 Standard Component [id number] - [id number] Implanted:Qty: 1 on 07/01/2024 by Jim Wilson MD at [facility] Right: Knee [employer] [id number] 04/05/2034 [id number] / / [id number] [employer] Persona 10mm Knee Right 6-7 C-D Insert Articular Vivacit-E [id number] - [id number] Implanted:Qty: 1 on 07/01/2024 by Jim Wilson MD at [facility] Right: Knee [employer] [id number] 08/27/2027 [id number] / / [id number] [employer] Persona 29mm Knee Component Patellar All Poly Latex Free [id number] - [id number] Implanted:Qty: 1 on 07/01/2024 by Jim Wilson MD at [facility] [employer] 12/27/2028 [id number] / / [id number] Description:Documented under supplies. Insurance AETNA MEDICARE AETNA MEDICARE AETNA MEDICARE Advance Directives For more information, please contact: [phone] * Full Code (Latest Code Status on File) Date Activated Date Inactivated Comments 07/01/2024 12:56 PM 07/02/2024 4:04 PM Care Teams Applier Relationship Specialty Start Date End Date Jose Enrique Iverson DO [address] [facility] [address] [place] [address] PCP - General Internal Medicine 04/27/24 Jim Wilson MD [address] [facility] [address] [place] [address] Surgeon Orthopedic Surgery 05/31/20
--- OUTSIDE RECORDS SUMMARY | 2025-03-09 09:58 | XMS_ITS | Continuity of Care Document ---
Author Organization [facility] Address [address] [facility] [address] [place] [address] Phone Care Team Providers Care Commercial Sewing Instructor Name Role Phone Koch OD, Moshe Unavailable Unavailable Advance Directives Directive Yes / No Effective Date File Name No Information Encounters Encounter Description Practice Location Reason(s) For Visit Diagnoses Date Provider Providers Copied on Encounter [facility], [id number] [place] [address] [address], [place], [place], [id number], [place] tel:[phone] [facility] No Information 1-200 0 Koch OD Moshe. [address] , [address], [place], [address], [place]. tel:[phone] Family History Family Member Type Diagnosis Age At Onset No Information Payers Payer name Insurance type Covered green party ID Authoriza tion(s) No Information Social History Type Description Quantity Date Captured Comments Sex Female Smoking Status No Information Chief Complaint And Reason For Visit No Information Reason For Referral Reason For Referral No Information History Of Present Illness Encounter Date Complaint History Of Prese nt Illness No Information Functional Status Date Functional Assessmen t No Information Instructions Date Instruction Additional Infor mation No Information Assessments Type Assessment Date No Information Patient Care Teams Name Effective Dates (start - stop) Status Members No Information
--- OUTSIDE RECORDS SUMMARY | 2025-03-09 09:58 | XMS_ITS | Continuity of Care Document ---
Author Organization [facility] Address [address] [facility] [address] [place] [address] Phone Care Team Providers Care Senior Naval Parachutist Name Role Phone Jim Wilson MD Unavailable Unavailable Allergies, Adverse Reactions, Alerts Substance Reaction Status Criticality erythromycin base Active No Informa tion Medications Medication Instructions Dosage Effective Dates (start - stop) Status Comments Mobic 15 mg tablet take 1 tablet by oral route every day to be taken food - Active to be taken with food lisinopril 5 mg tablet take 1 tablet by oral route every day 5 MG - Active aspirin 81 mg chewable tablet chew 1 tablet by oral route every day 81 MG - Active HRT BASE (unknown strength) Not Available - Active etodolac 400 mg tablet take 1 tablet by oral route 2 times every day with food 400 MG - No Longer Active ETODOLAC (unknown strength) Not Available - No Longer Active Procedures Procedure Date OFFICE/OUTPATIENT VISIT EST OFFICE/OUTPATIENT VISIT EST OFFICE/OUTPATIENT VISIT EST OFFICE/OUTPATIENT VISIT EST Advance Directives Directive Yes / No Effective Date File Name No Information Encounters Encounter Description Practice Location Reason(s) For Visit Diagnoses Date Provider Providers Copied on Encounter OFFICE/OUTPA TIENT VISIT EST [facility], [address], [place], [address], [place] [phone] [facility] Follow Up of RT KNEE (chief complaint) Primary osteoarthritis of right knee 8 Katie Fernandez. [address] [place], [place], [id number] . tel: [phone] OFFICE/OUTPA TIENT VISIT [facility], [address], [address], [place] [phone] [facility] Follow Up of SANDEE KNEES (chief complaint) RT ELBOW (chief complaint) Primary osteoarthritis of left kneePrimary osteoarthritis of right kneeLateral epicondylitis, right elbow 7 Katie Fernandez. [address] [place], [place], [id number] . tel: [phone] OFFICE/OUTPA TIENT VISIT [facility], [address] [place] [address], [address], [place] tel:[phone] [facility] Primary osteoarthritis of right kneePrimary osteoarthritis of left knee 6 Katie Fernandez. [address] [place] [address], [id number] . tel: [phone] OFFICE/OUTPA TIENT VISIT [facility], [address] [place] [address], [address], [place] [phone] [facility] Right shoulder pain (chief complaint) Right great toe pain (chief complaint) Biceps tendinitis on rightArthritis of first MTP joint 0 3 Katie Fernandez. [address] [place] [address], [id number] . tel: [phone] Referring Provider: Kojo Oconnell, [address] [place] [address] [address], [place], [address] . tel:[phone] Family History Family Member Type Diagnosis Age At Onset Son Problem (finding) Alive and well Daughter Problem (finding) Alive and well Payers Payer name Insurance type Covered republican ID Veronaa juanita(s) Blue Access PPO E2 OT [id number] Social History Type Description Quantity Date Captured Comments Alcohol Use Details Unknown Caffeine Use Details Unknown Tobacco Use Status Never smoked tobacco 2017 Smoking Status Never smoker Non-Smoking Tobacco Use Details : No Details Available : No Details Available Sex Female Vital Signs Date / Time: Height Weight BMI Pulse Rate Blood Pressure Temperature Respiratory Rate Body Surface Area Head Circumference Head Circ. Percentile Wt./Avi. Percentile BMI percentile Pulse Ox Inhaled Ox 8:19 AM 64.00 in 62.142 kg (137.00 lbs) 23.5 2 kg/m eter (2) 140/73 mm[Hg] Chief Complaint And Reason For Visit From encounter dated '12/03/2017 08:30'. Follow Up of RT KNEE (chief complaint) Reason For Referral Reason For Referral No Information Plan Of Treatment Date Type Action Status Referral Ordered: RADEX KNE COMPL 4/MORE VIEWS RT ordered Referral Ordered: RADEX ELBW COMPL MINIMUM 3 VIEWS RT ordered Referral Ordered: RADEX KNE 3 VIEWS LT ordered Referral Ordered: RADEX KNE 3 VIEWS RT ordered Referral Ordered: RADEX LEESA COMPL MINIMUM 2 VIEWS RT ordered Referral Ordered: RADEX TOE MINIMUM 2 VIEWS RT ordered History Of Present Illness Encounter Date Complaint History Of Prese nt Illness Follow Up of RT KNEE Follow Up of SANDEE KNEES RT ELBOW Functional Status Date Functional Assessmen t No Information Instructions Date Instruction Additional Infor dwaine activity as tolerated Related to Primary osteoarthritis of right knee apply heating pad or ice as tolerated Related to Primary osteoarthritis of right knee activity as tolerated Related to Primary osteoarthritis of left knee apply heating pad or ice as tolerated Related to Primary osteoarthritis of left knee activity as tolerated Related to Primary osteoarthritis of both knees apply heating pad or ice as tolerated Related to Primary osteoarthritis of both knees Assessments Type Assessment Date assessment Primary osteoarthritis of right knee Patient Care Teams Name Effective Dates (start - stop) Status Members No Information
--- OUTSIDE RECORDS SUMMARY | 2025-03-09 09:58 | XMS_ITS | Clinical Summary ---
Author Organization [facility] Address [address] [place] [address] Care Team Providers Care Foundry Patternmaker Name Role Phone Kojo Issa Primary Care Provider [phone] Allergies Active Allergy Reactions Criticality Noted Date Comments Erythromycin Nausea and Vomiting Low 11/02/2018 Medications meloxicam (MOBIC) 15 mg tablet Continuous as needed. 1 9 Active aspirin (ECOTRIN EC) 81 mg Tablet, Delayed Release (E.C.) Take 81 mg by mouth daily. Active multivitamin (DAILY-EVELIO) tablet Take 1 Tablet by mouth daily. Active ALPRAZolam (XANAX) 0.25 mg tablet 0 Active diclofenac sodium (VOLTAREN) 1 % gel diclofenac 1 % topical gel DIDI 2 GRAMS EXT AA TID Active Active Problems Problem Noted Date Diagnosed Date Seroma of breast 11/18/2018 Cellulitis of female breast 11/18/2018 Malignant neoplasm of upper- outer quadrant of right breast in female, estrogen receptor positive 11/02/2018 Immunizations Immunization Administration Dates Next Due INFLUENZA VACCINE QUADRIVALENT 6 MOS UP PF IM Family History Medical History Relation Name Comments Lung Cancer Maternal Uncle Uterine Cancer Mother diagnosed at age 30s Breast Cancer Paternal Cousin BRCA+ Relation Name Status Comments Brother Alive Father Maternal Uncle Mother Paternal Cousin Social History Tobacco Use Types Packs/Day Years Used Date Smoking Tobacco: Never Alcohol Use Standard Drinks/Week Comments Yes 0 (1 standard drink = 0.6 oz pur e alcohol) occasional Comments No Sex and Gender Information Value Date Recorded Sex Assigned at Not on file Legal Sex Female 3:55 PM PHOTOFLASH POWDER MIXER Gender Identity Not on file Sexual Orientation Not on file 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,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 on file Not on file Not on file Last Filed Vital Signs Vital Sign Reading Time Taken Comments Blood Pressure 124/70 08/09/2020 9:13 AM PHOTOFLASH POWDER MIXER Pulse 62 08/09/2020 9:13 AM PHOTOFLASH POWDER MIXER Temperature 36.1 C (96.9 F) 08/09/2020 9:13 AM PHOTOFLASH POWDER MIXER Respiratory Rate 16 08/09/2020 9:13 AM PHOTOFLASH POWDER MIXER Oxygen Saturation 98% 08/09/2020 9:13 AM PHOTOFLASH POWDER MIXER Inhaled Oxygen Concentration - - Weight 66.7 kg (147 lb) 08/09/2020 9:13 AM PHOTOFLASH POWDER MIXER Height 162.6 cm (5' 4) 08/09/2020 9:13 AM PHOTOFLASH POWDER MIXER Body Mass Index 25.23 08/09/2020 9:13 AM PHOTOFLASH POWDER MIXER Plan of Treatment Health Maintenance Due Date Last Done Comments DTAP/TDAP/TD VACCINES (1 - Tdap) 1972 COLORECTAL SCREENING 1998 Colorectal Cancer Screening 1998 FIT-DNA Q 3 years 1998 FIT/FOBT Q 1 year 1998 Flex Sig/CT Colonography Q 5 years 1998 PNEUMOCOCCAL VACCINE 50+ YEA RS (1 of 1 - PCV) 2003 ZOSTER VACCINE (1 of 2) 2003 OSTEOPOROSIS SCREENING 2018 BREAST CANCER SCREENING 08/28/2021 08/28/20 20, 02/28/2020, 10/18/2019, Additional history exists INFLUENZA VACCINE (#1) 2025 06/24/2019 RSV VACCINE (60+ or ) (1 - 1-dose 75+ series) 2028 Procedures Procedure Name Priority Date/Time Associated Diagnosis Comments MAMMO DIAG UNI RIGHT 3D TANESHA W OR WO CAD Routine 08/28/2020 Malignant neoplasm of upper-outer quadrant of right breast in female, estrogen receptor positive (CMS/HCC) from Last 3 Months or Most Recently Relevant to Health Maintenance Results * MAMMO DIAG UNI RIGHT 3D TANESHA W OR WO CAD (08/28/2020) Anatomical Region Laterality Modality Breast Right Mammography Yuliana Seaman MD MAMMO ORDERABLES Final Result from Last 3 Months or Most Recently Relevant to Health Maintenance Insurance [facility] [id number] Care Teams Foundry Patternmaker Relationship Specialty Start Date End Date Kojo Issa DO [address] [facility] [address] [place] [address] PCP - General Internal Medicine 10/27/18
--- OUTSIDE RECORDS SUMMARY | 2025-03-09 09:58 | XMS_ITS | Clinical Summary ---
Author Organization [address] Address [address] [place] [address] Care Team Providers Care Glassware Verifier Name Role Phone Jim Wilson MD Unavailable [phone] Jose Enrique Iverson DO Primary Care Provider [phone] Allergies No known active allergies Medications levothyroxine (SYNTHROID) 50 mcg tablet Take 1 tablet (50 mcg total) by mouth early morning babysitter before breakfast 0 Active lisinopriL (PRINIVIL,ZESTR IL) [...] breast in female, estrogen receptor positive 11/02/2018 Surgical History Surgery Date Site/Laterality Comments KNEE ARTHROSCOPY right knee scope appox 20 years ago APPENDECTOMY CATARACT EXTRACTION Bilateral Medical History Medical History Date Comments Cancer (HCC) breast cancer Osteoarthritis HTN (hypertension) Sleep apnea DM (diabetes mellitus) (HCC) GERD (gastroesophageal reflux disease) Hypothyroid Social History Tobacco Use Types Packs/Day Years [...] on file Legal Sex Female 2:19 AM OPTICIAN MANAGER Gender Identity Not on file Sexual Orientation Not on file Obstetrics History Last Filed Vital Signs Vital Sign Reading Time Taken Comments Blood Pressure 112/63 07/02/2024 9:25 AM CDT Pulse 52 07/02/2024 6:15 AM CDT Temperature 36.2 C (97.2 F) 07/02/2024 6:15 AM CDT Respiratory Rate 16 07/02/2024 6:15 AM CDT Oxygen Saturation 96% 07/02/2024 6:15 AM CDT Inhaled Oxygen Concentration - - Weight 61.7 kg (136 lb) 09/24/2024 9:31 AM OPTICIAN MANAGER s tated Height 162.6 cm (5' 4) 09/24/2024 9:31 AM OPTICIAN MANAGER Body Mass Index 23.34 09/24/2024 9:31 AM OPTICIAN MANAGER Plan of Treatment Health Maintenance Due Date Last Done Comments Breast Cancer Screening-Mammogram 1953 Colon Cancer Screening-Colonoscopy 1953 Depression Screening 1953 Hepatitis C Screening 1953 Osteoporosis Screening-Bone Density Scan 1953 DTaP/Tdap/Td Vaccine (1 - Tdap) 1964 Hepatitis B Screening 1971 Pneumococcal vaccine 65+ (1 of 1 - PCV) 2003 Zoster Vaccine (1 of 2) 2003 Well Visit 65+ 2018 Influenza Vaccine (Season Ended) 2025 06/24/20, 09/08/2017 Fall Risk Assessment 07/02/2025 07/02/2024 Medical Devices Implanted Type Area Home Office Claim Specialist Device Identifier Shelf Expiration Date Model / Serial / Lot [employer] Palacos R High Viscosity Cement 40gm Bone Green [id number] - [id number] Implanted:Qty: 1 on 07/01/2024 by Jim Wilson MD at [facility] Right: Knee [employer] [id number] 08/07/2028 [id number] / / [id number] [employer] Baseplate Tibial Knee Cemented Right Fixed Stemmed Persona Size D Tivanium [id number] - [id number] Implanted:Qty: 1 on 07/01/2024 by Jim Wilson MD at [facility] Right: Knee [employer] [id number] 12/25/2033 [id number] / / [id number] [employer] Persona Cruciate Retain Cemented Knee Right 6 Standard Component [id number] - [id number] Implanted:Qty: 1 on 07/01/2024 by Jim Wilson MD at [facility] Right: Knee [employer] [id number] 04/05/2034 [id number] / / [id number] [employer] Persona 10mm Knee Right 6-7 C-D Insert Articular Vivacit-E [id number] - [id number] Implanted:Qty: 1 on 07/01/2024 by Jim Wilson MD at [facility] Right: Knee [employer] [id number] 08/27/2027 [id number] / / [id number] [employer] Persona 29mm Knee Component Patellar All Poly Latex Free [id number] - [id number] Implanted:Qty: 1 on 07/01/2024 by Jim Wilson MD at [facility] [employer] 12/27/2028 [id number] / / [id number] Description:Documented under supplies. Insurance AETNA MEDICARE AETNA MEDICARE AETNA MEDICARE Advance Directives For more information, please contact: [phone] * Full Code (Latest Code Status on File) Date Activated Date Inactivated Comments 07/01/2024 12:56 PM 07/02/2024 4:04 PM Care Teams Glassware Verifier Relationship Specialty Start Date End Date Jose Enrique Iverson DO [address] [facility] [address] [place] [address] PCP - General Internal Medicine 04/27/24 Jim Wilson MD [address] [facility] [address] [place] [address] Surgeon Orthopedic Surgery 05/31/20
== END 2025-03-09 09:48 | disposition home or self-care (01) ==
PROVIDERS: PCP Internal Medicine; Visit Provider Internal Medicine
DX: R05.9 Cough, unspecified (principal)
CPT/HCPCS: 71046

== ENCOUNTER 2025-04-06 13:01 | Outpatient (CLI) | payer MEDICARE, SELFPAY ==
--- NOTE | ~2025-04-06 | US_ITS ---
EXAMINATION: US carotid duplex BI DATE: 04/06/2025 13:32 INDICATION: Dizziness TECHNIQUE: Grayscale, color Doppler, and pulsed Doppler images of the cervical carotid arteries were obtained. The degree of vessel stenosis is placed in one of the following categories: normal, <50%, 5 0-69%, >=70% but less than near-occlusion, near-occlusion, or total occlusion. Note that percent sten osis relative to normal distal artery lumen diameter is indirectly measured from velocity measurement s as described by Chan, et al. Radiology 2003; 229:340-346. COMPARISON: None. FINDINGS: RIGHT: The right common carotid artery (CCA) peak systolic velocity (PSV) is 86 cm/s. The right internal car otid artery (ICA) PSV is 65 cm/s. The right ICA end-diastolic velocity (EDV) is 19 cm/s. The right IC A/CCA PSV ratio is 0.8. Grayscale and color Doppler images yield an estimate of <50% diameter reducti on from small amount of plaque in the ICA. The external carotid artery (ECA) PSV is 83 cm/s. There is antegrade flow in the right vertebral artery. LEFT: The left CCA PSV is 91 cm/s. The left ICA PSV is 78 cm/s. The left ICA EDV is 29 cm/s. The left ICA/C CA PSV ratio is 0.9. Grayscale and color Doppler images yield an estimate of <50% diameter reduction from minimal plaque in the ICA. The ECA PSV is 93 cm/s. There is antegrade flow in the left vertebral artery. IMPRESSION: 1. <50% stenosis in the right internal carotid artery. 2. <50% stenosis in the left internal carotid artery. Reviewed, dictated and finalized at location A.
--- OUTSIDE RECORDS SUMMARY | 2025-04-06 13:12 | XMS_ITS | Clinical Summary ---
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 file Not on file Not on file Last Filed Vital Signs Vital Sign Reading Time Taken Comments Blood Pressure 124/70 08/09/2020 9:13 AM ENVIRONMENTAL ISSUES INSTRUCTOR Pulse 62 08/09/2020 9:13 AM ENVIRONMENTAL ISSUES INSTRUCTOR Temperature 36.1 C (96.9 F) 08/09/2020 9:13 AM ENVIRONMENTAL ISSUES INSTRUCTOR Respiratory Rate 16 08/09/2020 9:13 AM ENVIRONMENTAL ISSUES INSTRUCTOR Oxygen Saturation 98% 08/09/2020 9:13 AM ENVIRONMENTAL ISSUES INSTRUCTOR Inhaled Oxygen Concentration - - Weight 66.7 kg (147 lb) 08/09/2020 9:13 AM ENVIRONMENTAL ISSUES INSTRUCTOR Height 162.6 cm (5' 4) 08/09/2020 9:13 AM ENVIRONMENTAL ISSUES INSTRUCTOR Body Mass Index 25.23 08/09/2020 9:13 AM ENVIRONMENTAL ISSUES INSTRUCTOR Plan of Treatment Health Maintenance Due Date [...] Most Recently Relevant to Health Maintenance Insurance [facility] [id number] Care Teams Data Integrity Analyst Relationship Specialty Start Date End Date Kojo Issa DO [address] [facility] [address] [place] [address] PCP - General Internal Medicine 10/27/18
--- OUTSIDE RECORDS SUMMARY | 2025-04-06 13:12 | XMS_ITS ---
Author [facility] Address [address] [place] [address] Care Team Providers Care Retail Reset Merchandiser Name Role Phone Kojo Issa DO Primary Care Provider [phone] Active Problems Problem Noted Date Diagnosed Date [...] Breast Cancer Survivorship Care Plan Provided by [facility] on 12/30/18 General Information Patient Name: Rosalba Smith Patient : 1955 Care Team Medical Oncologist: Yuliana Seaman Surgeon: Dr Amado Plastic Surgeon: DESTINEE Radiation Oncologist: Bettie Cardenas Primary Care Physician: Kojo Issa DO, patternmaker grader Physician: Dr Rosario Palliative Care Provider: DESTINEE [...] Oncologist Pelvic examination Continue to visit a regional education coordinator regularly. If you use tamoxifen, you have [...] cancer could run in the family: Ashkenazi Confucianist heritage Personal or family history of ovarian [...] resources is provided below to assist you. [facility] Oncology Rehabilitation & Survivorship Dee Thomas and Johan [address] [place] [address] [facility] Integrative Medicine and Therapy Services - Marko Galeas [facility] [address] [place] [address] [facility] Therapy Services - [place] [address] [place] [address] [facility] Therapy Services - [facility] [address] [place] [address] [facility] Therapy Services - [place] [address] [place] [address] [facility] Integrative Medicine & Healing Therapies [facility] Integrative Medicine and Therapy Services Manjit [address], [address] [place]. [address] Services: Acupuncture, Auriculotherapy, Chiropractic, Guided Imagery, Healing Touch, Massage Therapy, Nutritional Counseling, Physical Therapy (manual and traditional) and Reflexology [facility] [address], [address] [place]. [address] Services: Acupuncture, Auriculotherapy, Chiropractic, and Massage Therapy [facility] Integrative Medicine and Therapy Services [place] Option 1 [address], [address] [place] [address] Services: Acupuncture, Auriculotherapy, Guided Imagery, Healing Touch, Massage Therapy, Lymphedema,Physical Therapy and Reflexology [facility] [address], [address] [place]. [address] Services: Acupuncture and Chiropractic Lymphedema Programs & Support Groups Marko Galeas [facility] [address] [place] [address] [facility] [address] [place] [address] [place] Cancer Society www.cancer.org Help line 24 hours, 7 days/week, phone [phone]-[phone] [place] [address] Hours Friday - Friday 8:30 am- 5 pm Services include: information and referrals, educational materials transportation assistance nutritional supplements wigs educational and support programs Breastcancer.org www.breastcancer.org Online resource for breast cancer information. Cancer Care www.cancercare.org [address] [place] [address] 9-307-310-WAKE FOREST Cancer Care provides some financial assistance for transportation and other needs. Cancer patients must call to see if they qualify and to have an application mailed to them. They need a healthcare professional to assist with completion of the application. Cancer Support Community of [facility] www.cancersupportstl.org [address] [place] [address] Helps people with cancer and their loved ones enhance health and well being by providing a professional program of emotional support, education and hope. Programs and services are held in a homelike setting where people with cancer can come to be with others, to build support and a sense of extended family to share, learn, and improve their quality oflife. Cancer Support Community?s [facility] Cancer Service www.cancersupportstl.org [address] [place] [address] Phone Upon the written referral of a [...] patients must live in the counties of: [facility], [facility], [facility], [place]; [facility] of [facility] and [place];or come to the [facility] for their cancer treatment. Chronic Disease Fund www.cdfund.org Assists patients who cannot access the treatments they need due to ifj-nf-dpvlgz healthcare costs including deductibles, copayments, and coinsurance. Call to find out if there are funds for a specific diagnosis. Food Outreach www.foodoutreach.org [address] [place] [address] [phone]-RNAQ ([phone]) Food Outreach provides nutritional services to men, women and children undergoing cancer treatment in the [facility]. A dietitian accesses each person?s nutritional status and needs. The dietitian and nut dehydrator operator work together to develop eating plans to meet the specialized nutritional needs of people living with cancer. Clients who meet financial guidelines can make selections once every 2 weeks from a menu. [place] [facility] www.pike community hospitaltl.org.org [phone] [place] [facility] was created to help underinsured and uninsured women at high- risk for (or diagnosedwith) breast cancer. Their goal is to lift the financial burdens, ease the unknowing, and help you focus on feeling well again. [place] www.Workstreameration.org [facility] addresses the needs of individuals who cannot afford their insurance co-payments, premiums, coinsurance, or other cvs-pe-xxpzaf health care costs. Call to see if they offer assistance for a specific diagnosis. Living Beyond Breast Cancer www.lbbc.org 923-043-MHOU ([phone]) Survivor?s helpline Website and free helpline for women with breast cancer. Neurescue www.Southern Po Boys.Trellis Technology A resource for medication assistance programs for people who have no insurance coverage or limited coverage for medications. Patient Access Network Foundation www.patientaccessnetwork.org Assists patients who cannot access the treatments they need due to rgs-by-nmekiw healthcare costs including deductibles, copayments, and coinsurance. Call to find out if there are funds for a specific diagnosis. Patient Advocate Foundation?s Co-Pay Relief Program www.Radiant Zemax.org Provides direct co-payment assistance for pharmaceutical products to insured patients (including Medicare Part D beneficiaries), who financially and medically qualify. Call to find out if they provide assistance for a specific diagnosis. [facility] Adal [facility] www.[facility] [address] [place] [address] Phone , or [phone] Provides education, information, and support to patients and family members Open M-F, 8:00 am- 4:30 pm, staff include registered nurses, social media senior associate, dietitian [place] [employer] www.Leroy Brothersoc.org [address] [place] [address] Hours are M-F, 8:30 am- 4:30 pm The [employer] serves cancer patients in [facility]. Assistance is provided for the following when not covered by insurance: dietary supplements, prostheses, medications, surgical dressings, respite care, colostomy supplies,catheters, transportation, postoperative appliances ADDITIONAL WEBSITES Association of Community Cancer Centers www.acc-cancer.org National Cancer Salvo http://cancer.gov The National Coalition for Cancer Survivorship www.canceradvocacy.org National Resources-Cancer Cancer Education Academy of Oncology Nurse & Patient Navigators: www.aonnonline.org Wesley's Lemonade Stand Foundation for Childhood Cancer: www.alexslemonade.org [place] Cancer Society: www.cancer.org [place] Society of Clinical Oncology: www.cancer.net Association of Community Cancer Centers: www.[facility]-cancer.org WEQFRC303: www..org CancerCare: www.cancercare.org CancerGuide: www.cancerguide.org CancerQuest: www.cancerquest.org Centers for Disease Control and Prevention (CDC): www.cdc.gov The Gathering Place: www.touchedbycancer.org Get Palliative Care: www.getpalliativecare.org Global Resource for Advancing Cancer Education (MARLYN): www.cancergrace.org The Britely: www.Atilekt.KAI Square Foundation: www.Senseg.RiverGlass, Inc. National Cancer Salvo: www.cancer.gov National Comprehensive Cancer Network (NCCN): www.nccn.org National BT Cancer Network: http://cancer-network.org OncoLink: www.oncolink.org Oncology Nursing Society: www.ons.org Patient Power: www.patientpower.info PearlPoint Cancer Support: www.pearlpoint.org Cherry Zevia Foundation: www.pinestreetfoundation.org [facility] Cancer Foundation: www.blochcancer.org [facility]: www.[facility] emergencys.org Triage Cancer: www.triagecancer.org U.S. National Library of Medicine: www.nlm.nih.gov Financial Assistance [place] Cancer Society: www.cancer.org [place] Kidney Fund: www.kidneyfund.org BenefitsCheckUp: www.benefitscheckup.org Bringing Hope Home: www.bringinggreene memorial hospitalome.org CancerCare: www.cancercare.org/financial Cancer Financial Assistance Coalition: www.cancerfac.org The [place] SL Fund: www.Celeris Corporation.Tanner Research Foundation: www.Workstreameration.org Hope [place]: www.cancer.org/treatment/supportprogramsservices/hopelodge LIVESTRONG Foundation: www.Senseg.RiverGlass, Inc. Medicare.gov: www.medicare.gov NeedyMeds: www.needymeds.Trellis Technology Partnership for Prescription Assistance: www.pparx.org Patient Access Network Foundation: www.panfoundation.org Patient Advocate Foundation: www.patientadvocate.org Patient Services, Inc.: www.patientservicesinc.org The Negin Monk Foundation: www.biapauly.org RxAssist: www.rxassist.org RxHope: www.rxhope.Trellis Technology Social Security Administration: www.ssa.gov Social Security Disability Resource Center: www.[facility].Trellis Technology [facility] Health Insurance Assistance Programs: www.Medical Datasoft Internationaltacicaydaer.RiverGlass, Inc. Stupid Cancer: www.stupidcancer.org [place] Cancer Society Guidelines on Nutrition and Physical [...] hot dogs), desserts, high-fat dairy products and Maldivian fries. Most of the studies about cancer [...]
--- OUTSIDE RECORDS SUMMARY | 2025-04-06 13:12 | XMS_ITS | Clinical Summary ---
Author Organization [address] Address [address] [place] [address] Care Team Providers Care Aquaculture Program Director Name Role Phone Jim Wilson MD Unavailable [phone] Jose Enrique Iverson DO Primary Care Provider [phone] Allergies No known active allergies Medications levothyroxine (SYNTHROID) 50 mcg tablet Take 1 tablet (50 mcg total) by mouth sheet cutting operator before breakfast 0 Active lisinopriL (PRINIVIL,ZESTR [place]) [...] on file Legal Sex Female 2:19 AM AIRCRAFT HYDRAULIC EQUIPMENT MECHANIC Gender Identity Not on file Sexual Orientation [...] 61.7 kg (136 lb) 09/24/2024 9:31 AM AIRCRAFT HYDRAULIC EQUIPMENT MECHANIC s tated Height 162.6 cm (5' 4) 09/24/2024 9:31 AM AIRCRAFT HYDRAULIC EQUIPMENT MECHANIC Body Mass Index 23.34 09/24/2024 9:31 AM AIRCRAFT HYDRAULIC EQUIPMENT MECHANIC Plan of Treatment Health Maintenance Due Date Last Done Comments Breast Cancer Screening-Mammogram 1955 Colon Cancer Screening-Colonoscopy 1955 Depression Screening 1955 Hepatitis C Screening 1955 Osteoporosis Screening-Bone Density Scan 1955 DTaP/Tdap/Td Vaccine (1 - Tdap) 1964 Hepatitis B Screening 1971 Pneumococcal vaccine 65+ (1 of 1 - PCV) 2003 Zoster Vaccine (1 of 2) 2003 Well Visit 65+ 2018 Influenza Vaccine (#1) 2025 06/24/2019, 2017 Fall Risk Assessment 07/02/2025 07/02/2024 Medical Devices Implanted Type Area Rig Operator Device Identifier Shelf Expiration Date Model / Serial / Lot [employer] Palacos R High Viscosity Cement 40gm Bone Green [id number] - [id number] Implanted:Qty: 1 on 07/01/2024 by Jim Wilson MD at [facility] Right: Knee [employer] [id number] 08/07/2028 [id number] / / [id number] [employer] Baseplate Tibial Knee Cemented Right Fixed Stemmed Persona Size D Tivanium [id number] - [id number] Implanted:Qty: 1 on 07/01/2024 by Jim Wilson MD at [facility] Right: Knee [employer] [id number] 12/25/2033 [id number] / / [id number] [employer] Persona Cruciate Retain Cemented Knee Right 6 Standard Component [id number] - [id number] Implanted:Qty: 1 on 07/01/2024 by Jim Wilson MD at [facility] Right: Knee [employer] [id number] 04/05/2034 [id number] / / [id number] [employer] Persona 10mm Knee Right 6-7 C-D Insert Articular Vivacit-E [id number] - [id number] Implanted:Qty: 1 on 07/01/2024 by Jim Wilson MD at [facility] Right: Knee [employer] [id number] 08/27/2027 [id number] / / [id number] [employer] Persona 29mm Knee Component Patellar All Poly Latex Free [id number] - [id number] Implanted:Qty: 1 on 07/01/2024 by Jim Wilson MD at [facility] [employer] 12/27/2028 [id number] / / [id number] Description:Documented under supplies. Insurance AETNA MEDICARE AETNA MEDICARE AETNA MEDICARE Advance Directives For more information, please contact: [phone] * Full Code (Latest Code Status on File) Date Activated Date Inactivated Comments 07/01/2024 12:56 PM 07/02/2024 4:04 PM Care Teams Aquaculture Program Director Relationship Specialty Start Date End Date Jose Enrique Iverson DO [address] [facility] [address] [place] [address] PCP - General Internal Medicine 04/27/24 Jim Wilson MD [address] [facility] [address] [place] [address] Surgeon Orthopedic Surgery 05/31/20
--- OUTSIDE RECORDS SUMMARY | 2025-04-06 13:12 | XMS_ITS | Continuity of Care Document ---
Author Organization [facility] Address [address] [facility] [address] [place] [address] Phone Care Team Providers Care Lav Crewman Name Role Phone Koch OD, Moshe Unavailable Unavailable Advance Directives Directive Yes / No Effective Date File Name No Information Encounters Encounter Description Practice Location Reason(s) For Visit Diagnoses Date Provider Providers Copied on Encounter [facility], [address] [place] [address] [address], [place], [place], [id number], [place] tel:[phone] [facility] No Information 1-200 0 Koch OD Moshe. [address], [place], [address], [place]. tel:[phone] Family History Family Member Type Diagnosis Age At Onset No Information Payers Payer name Insurance type Covered republican ID Authoriza tion(s) No Information Social History [...]
--- OUTSIDE RECORDS SUMMARY | 2025-04-06 13:12 | XMS_ITS | Referral Summary ---
Author Organization [address] Address [address] [place] [address] Care Team Providers Care Hospice Care Consultant Name Role Phone Jim Wilson MD Unavailable Jose Enrique Iverson DO Primary Care Provider [phone] Allergies No known active allergies Medications levothyroxine (SYNTHROID) 50 mcg tablet Take 1 tablet (50 mcg total) by mouth instructor correspondence school before breakfast 0 Active lisinopriL (PRINIVIL,ZESTR [place]) [...] on file Legal Sex Female 2:19 AM MERCHANDISE DISPLAYER Gender Identity Not on file Sexual Orientation [...] 61.7 kg (136 lb) 09/24/2024 9:31 AM MERCHANDISE DISPLAYER s tated Height 162.6 cm (5' 4) 09/24/2024 9:31 AM MERCHANDISE DISPLAYER Body Mass Index 23.34 09/24/2024 9:31 AM MERCHANDISE DISPLAYER Plan of Treatment Not on file Medical Devices Implanted Type Area Chief Mechanical Officer Device Identifier Shelf Expiration Date Model / Serial / Lot [employer] Inc Palacos R High Viscosity Cement 40gm Bone Green [id number] - [id number] Implanted:Qty: 1 on 07/01/2024 by Jim Wilson MD at [facility] Right: Knee [employer] [id number] 08/07/2028 [id number] / / [id number] [employer] Baseplate Tibial Knee Cemented Right Fixed Stemmed Persona Size D Tivanium [id number] - [id number] Implanted:Qty: 1 on 07/01/2024 by Jim Wilson MD at [facility] Right: Knee [employer] [id number] 12/25/2033 [id number] / / [id number] [employer] Persona Cruciate Retain Cemented Knee Right 6 Standard Component [id number] - [id number] Implanted:Qty: 1 on 07/01/2024 by Jim Wilson MD at [facility] Right: Knee [employer] [id number] 04/05/2034 [id number] / / [id number] [employer] Persona 10mm Knee Right 6-7 C-D Insert Articular Vivacit-E [id number] - [id number] Implanted:Qty: 1 on 07/01/2024 by Jim Wilson MD at [facility] Right: Knee [employer] [id number] 08/27/2027 [id number] / / [id number] [employer] Persona 29mm Knee Component Patellar All Poly Latex Free [id number] - [id number] Implanted:Qty: 1 on 07/01/2024 by Jim Wilson MD at [facility] [employer] 12/27/2028 [id number] / / [id number] Description:Documented under supplies. Insurance AETNA MEDICARE AETNA MEDICARE AETNA MEDICARE Advance Directives For more information, please contact: [phone] * Full Code (Latest Code Status on File) Date Activated Date Inactivated Comments 07/01/2024 12:56 PM 07/02/2024 4:04 PM Care Teams Hospice Care Consultant Relationship Specialty Start Date End Date Jose Enrique Iverson DO [address] [facility] 21 [place] [address] PCP - General Internal Medicine 04/27/24 Jim Wilson MD [address] [facility] 100 [place] [address] Surgeon Orthopedic Surgery 05/31/20
--- OUTSIDE RECORDS SUMMARY | 2025-04-06 13:12 | XMS_ITS | Continuity of Care Document ---
Author Organization [facility] Address [address] [place] [address] Phone Care Team Providers Care Center Customer Service Associate Name Role Phone Jim Wlison MD Unavailable Unavailable Allergies, Adverse Reactions, Alerts Substance Reaction Status Criticality erythromycin base Active No Informa tion Medications Medication Instructions Dosage Effective Dates (start - stop) Status Comments Mobic 15 mg tablet take 1 tablet by oral route every day to be taken food - Active to be taken with food aspirin 81 mg chewable tablet chew 1 tablet by oral route every day 81 MG - Active lisinopril 5 mg tablet take 1 tablet by oral route every day 5 MG - Active HRT BASE (unknown strength) [...] Copied on Encounter OFFICE/OUTPA TIENT VISIT EST [facility], [address], [place], [address], [place] [phone] [facility] Follow Up of RT KNEE (chief complaint) Primary osteoarthritis of right knee 8 Katie Fernandez. [address] [place], [place], [id number] . tel: [phone] OFFICE/OUTPA TIENT VISIT [facility], [address], [address], [place] [phone] [facility] Follow Up of SANDEE KNEES (chief complaint) RT ELBOW (chief complaint) Primary osteoarthritis of left kneePrimary osteoarthritis of right kneeLateral epicondylitis, right elbow 7 Katie Fernandez. [address] [place], [place], [id number] . tel: [phone] OFFICE/OUTPA TIENT VISIT [facility], [address] [place] [address], [address], [place] tel:[phone] [facility] Primary osteoarthritis of right kneePrimary osteoarthritis of left knee 6 Katie Fernandez. [address] [place] [address], [id number] . tel: [phone] OFFICE/OUTPA TIENT VISIT [facility], [address] [place] [address], [address], [place] [phone] [facility] Right shoulder pain (chief complaint) Right great toe pain (chief complaint) Biceps tendinitis on rightArthritis of first MTP joint 0 3 Katie Fernandez. [address] [place] [address], [id number] . tel: [phone] Referring Provider: Kojo Oconnell, [address] [place], [place] [address], [place], [address] . tel:[phone] Family History Family Member Type Diagnosis Age At Onset Son Problem (finding) Alive and well Daughter Problem (finding) Alive and well Payers Payer name Insurance type Covered constitution party ID Veronaa juanita(s) Blue Access PPO E2 OT [id number] Social History Type Description Quantity Date Captured [...]
--- OUTSIDE RECORDS SUMMARY | 2025-04-06 13:12 | XMS_ITS | Clinical Summary ---
Author Organization [facility] Address [address] [place] [address] Care Team Providers Care Eye Clinic Manager Name Role Phone Kojo Issa Primary Care Provider Source Comments [facility],non-owned Affiliates and Associated Physician Practices is amultiple site organization consisting of ambulatory clinics and hospital sitesin [place], [place], [place] and [place]. This disclosure is being madepursuant to the Care Everywhere program and may not contain all information available regarding this patient. 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 Gender Identity Not on file Sexual Orientation Not on file Plan of Treatment Health Maintenance Due Date Last Done Comments BONE DENSITY TESTING 1955 COLON MONITORING 1955 COLONOSCOPY - COLON CA SCREENING 1953 CT COLONOGRAPHY - COLON CA SCREENING 1955 FIT - COLON CA SCREENING 1955 FLEX SIG - COLON CA SCREENING 1955 LIPID TESTING 1955 HEPATITIS C SCREENING 08/07/1971 DTAP/TDAP/TD VACCINES (1 - Tdap) 1972 PNEUMOCOCCAL VACCINE 50+ (1 of 1 - PCV) 2003 ZOSTER VACCINE (1 of 2) 2003 MAMMOGRAM 08/28/2022 08/28/2020, 08/27/2018 COVID-19 VACCINE (2023-2 5 season) 2024 DEPRESSION SCREENING 09/08/2024 MEDICARE AWV CALENDAR YEAR 2024 INFLUENZA VACCINE (#1) 2025 06/24/2019 COLOGUARD (AGES 45-75) - COL [...] age to complete this topic Insurance [facility] MEDICARE Care Teams Eye Clinic Manager Relationship Specialty Start Date End Date Kojo Issa DO [address] [address] [place] [address] PCP - General Internal Medicine 08/28/18
--- OUTSIDE RECORDS SUMMARY | 2025-04-06 13:13 | XMS_ITS | Encounter Summary ---
Author Organization [facility] Address 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
== END 2025-04-06 13:02 | disposition home or self-care (01) ==
PROVIDERS: PCP Internal Medicine; Visit Provider Internal Medicine
DX: R09.89 Other specified symptoms and signs involving the circulatory and respiratory systems (principal); I65.23 Occlusion and stenosis of bilateral carotid arteries
CPT/HCPCS: 93880